=== PATIENT | male | born 1960 | race Caucasian/White ===

== ENCOUNTER 2022-05-16 10:06 | Emergency (ER) | payer BC, OTHER ==
[2022-05-16 10:30] VITALS: BP 143/98; PULSE 60; RESP 15; TEMP 98.2; BMI 28.5
== END 2022-05-16 11:49 | disposition home or self-care (01) ==
LOC: FER 10:06
DX: N41.0 Acute prostatitis (principal)
CPT/HCPCS: 81003; 99283-25